=== PATIENT | male | born 1980 | race Caucasian/White ===

== ENCOUNTER 2021-10-20 12:54 | Emergency (ER) | payer BC, OTHER ==
[~2021-10-20] VITALS: Ht 172.7 cm; Wt 140.6 kg
[2021-10-20] MEDS ORDERED: MECLIZINE HCL 25 MG TAB PO ONE (17:00)
[2021-10-20] MEDS ORDERED: cloNIDine HCL 0.1 MG TAB ONE (17:54)
[2021-10-20] MEDS ORDERED: cloNIDine HCL 0.1 MG TAB PO ONE (18:00)
[2021-10-20 19:47] VITALS: BP 185/91
== END 2021-10-20 21:14 | disposition left against medical advice (07) ==
LOC: ER 12:54
DX: T78.40XA Allergy, unspecified, initial encounter (principal); X58.XXXA Exposure to other specified factors, initial encounter; Z53.21 Procedure and treatment not carried out due to patient leaving prior to being seen by health care provider